=== PATIENT | female | born 1990 | race Caucasian/White ===

== ENCOUNTER → 2017-04-08 16:55 | Outpatient (CLI) | payer OTHER, SELFPAY ==
[2017-04-08 19:25] LABS: Chlamydia Trachomatis by PCR Negative (Negative); Neisserai gonorrhoeae by PCR Negative (Negative); Probe Check PASS; Sample Adequacy Control PASS; Specimen Processing Control PASS
== END ==
PROVIDERS: Visit Provider Obstetrics & Gynecology
DX: Z11.3 Encounter for screening for infections with a predominantly sexual mode of transmission (principal)
CPT/HCPCS: 87491; 87591

== ENCOUNTER → 2017-05-01 16:30 | Outpatient (CLI) | payer OTHER, SELFPAY ==
[2017-05-01 17:36] LABS: Absolute Lymphocyte Count 2.92 X10^3/ul (0.83-4.51); Absolute Neutrophil Count 2.3 X10^3/uL (2.0-7.7); Basophil# 0.06 X10^3/uL; Eosinophil# 0.11 X10^3/uL; Eosinophils% 1.8 % (0-5); Hematocrit 34.9 % (37-47); Hemoglobin 11.9 g/dl (12.0-15.0); Lymphocyte # 2.92 X10^3/ul (4.0); Lymphocyte % 48.7 % (19-41); Mean Corp Hgb Conc 34.1 g/gl (32-36); Mean Corpuscular Hgb 29.3 pg (27.0-32.0); Mean Platelet Vol. 8.8 fl (6.2-12.0); Monocyte# 0.54 X10^3/uL; Neutrophil # 2.34 X10^3/uL (2.7-7.7); Neutrophil % 39.2 % (47-70); Platelet Count 217 K/mm3 (150-450); RBC Distribution Width CV 13.9 % (11.6-14.6); Red Blood Count 4.06 M/mm3 (4.2-5.4)
[2017-05-01 17:45] LABS: POSITIVE COUNT NO; POSITIVE DIFFERENTIAL NO; POSITIVE MORPHOLOGY NO
[2017-05-01 18:03] LABS: Color, Urine Straw (Yellow); Glucose, Dipstick Normal (Normal); Ketone-Dipstick Negative (Negative); Leukocyte Esterase-Dipstick Negative /ul (Negative); Nitrite-Dipstick Negative (Negative); Occult Blood-Urine Negative /ul (Negative); Protein-Dipstick Negative (Negative); Urine Bilirubin Dipstick Negative (Negative); Urine Clarity Clear (Clear); Urine Urobilinogen Normal (Normal)
[2017-05-01 18:18] LABS: Thyroid Stim Hormone (TSH) 1.95 uIU/mL (0.358-3.74)
[2017-05-01 18:34] LABS: Amphetamine Urine VISTA NEGATIVE (<1000 ng/mL); Barbiturate Urine VISTA NEGATIVE (< 200 ng/mL); Benzodiazepine Urine VISTA NEGATIVE (< 200 ng/mL); Cocaine Urine VISTA NEGATIVE (< 300 ng/mL); Ecstacy Urine VISTA NEGATIVE (< 500 ng/mL); Methadone Urine VISTA NEGATIVE (< 300 ng/mL); PCP Urine VISTA NEGATIVE (< 25 ng/mL); THC Urine VISTA NEGATIVE (< 50 ng/mL); Vista UDS pH Range 6
[2017-05-01 18:58] LABS: COTININE Drug Screen Negative (<200 ng/mL)
[2017-05-02 01:10] LABS: Prenatal RPR NONREACTIVE (NONREACTIVE)
[2017-05-02 16:16] LABS: HIV - WCH Non-Reactive (Nonreactive); Rubella IgG 75.1 IU/mL
[2017-05-03 11:02] LABS: HEPATITIS B SURFACE AG Negative (Negative); Hep C Antibodies 0.2 s/co ratio (0.0-0.9)
== END ==
PROVIDERS: Visit Provider Obstetrics & Gynecology
DX: Z34.81 Encounter for supervision of other normal pregnancy, first trimester (principal)
CPT/HCPCS: 36415; 80307; 81002; 84443; 85025; 86703; 86762; 86803; 87340

== ENCOUNTER → 2017-08-26 09:23 | Outpatient (CLI) | payer OTHER, SELFPAY ==
[2017-08-26 11:13] LABS: Hematocrit 33.8 % (37-47); Hemoglobin 11.3 g/dl (12.0-15.0); Mean Corp Hgb Conc 33.4 g/gl (32-36); Mean Corpuscular Hgb 30.8 pg (27.0-32.0); Mean Corpuscular Volume 92.1 fL (81-99); Platelet Count 187 K/mm3 (150-450); RBC Distribution Width CV 14.5 % (11.6-14.6); RBC Distribution Width SD 47.5 fl (35.1-43.9); Red Blood Count 3.67 M/mm3 (4.2-5.4); White Blood Count 7.6 K/mm3 (4.4-11.0)
[2017-08-26 11:14] LABS: Scan Indicated on CBC? Y/N NO
[2017-08-26 11:15] LABS: Glucose Challenge Gest 1H 50g 118 mg/dL (70-140)
== END ==
PROVIDERS: Visit Provider Obstetrics & Gynecology
DX: Z34.82 Encounter for supervision of other normal pregnancy, second trimester (principal)
CPT/HCPCS: 36415; 82950; 85027

== ENCOUNTER → 2017-10-21 16:58 | Outpatient (CLI) | payer OTHER, SELFPAY ==
[2017-10-21 19:09] LABS: Group B Strep DNA By PCR Negative (Negative); Internal Control PASS; Probe Check PASS; Specimen Processing Control PASS
== END ==
PROVIDERS: Visit Provider Obstetrics & Gynecology
DX: Z34.83 Encounter for supervision of other normal pregnancy, third trimester (principal)
CPT/HCPCS: 87081; 87653

== ENCOUNTER 2017-11-26 06:55 | Inpatient (IN) | payer OTHER, SELFPAY ==
[2017-11-26 07:21] VITALS: BMI 28.0
[2017-11-26] MEDS: Oxytocin 30 units/NS 500 ml 30 UNITS/500 ML IV.SOLN IV (07:45)
[2017-11-26 07:51] LABS: Hematocrit 34.4 % (37-47); Hemoglobin 11.4 g/dl (12.0-15.0); Mean Corp Hgb Conc 33.1 g/gl (32-36); Mean Corpuscular Hgb 30.6 pg (27.0-32.0); Mean Corpuscular Volume 92.5 fL (81-99); Mean Platelet Vol. 10.5 fl (6.2-12.0); Platelet Count 188 K/mm3 (150-450); RBC Distribution Width CV 14.3 % (11.6-14.6); RBC Distribution Width SD 48.9 fl (35.1-43.9); Red Blood Count 3.72 M/mm3 (4.2-5.4); Scan Indicated on CBC? Y/N NO; White Blood Count 9.6 K/mm3 (4.4-11.0)
[2017-11-26] MEDS: Lactated Ringers 1,000 ML 50 ML IV (07:52)
--- NOTE | 2017-11-26 08:04 | PCM.PROGNOTE ---
Subjective: Comfortable, not feeling contractions. Objective: Afeb VSS FHR tracing Cat 1. - Physical Exam General: Alert, Oriented x3, Cooperative, No apparent distress Lungs: Clear to auscultation, Normal air movement Cardiovascular: Regular rate, Regular Rhythm Abdomen: Soft, Non Tender, Non-Distended, Gravid, Appropriate for Gestational Age Extremities: No edema Skin: No rashes Neurological: Neuro grossly intact Psych/Mental Status: Normal Affect Comment: CE /-2 Weight: 153 lb 7.068 oz Body Mass Index (BMI) 28.0 Laboratory Tests Past 24 Hrs 11/26/17 11/26/17 07:25 07:25 WBC 9.6 RBC 3.72 L Hgb 11.4 L Hct 34.4 L MCV 92.5 MCH 30.6 MCHC 33.1 RDW 14.3 RDW Differential 48.9 H Plt Count 188 MPV 10.5 Blood Type Pending Antibody Screen Pending Medical Necessity - Tobacco Use Smoking Status: Never smoker Assessment/Plan All Active Problems hemorrhage, delivered (Acute) Admitted for induction of labor at 40 6/7 weeks EGA. AROM performed with clear fluid noted. Reassuring FHR tracing. Pitocin induction started.
[2017-11-26] MEDS: Ondansetron 4 MG/2 ML Vial IV (15:49)
[2017-11-26] MEDS: Oxytocin 30 units/NS 500 ml 30 UNITS/500 ML IV.SOLN 334 UNITS IV (16:25)
--- NOTE | 2017-11-26 16:37 | PCM.OB.VAG ---
Vaginal Delivery Maternal Presentation: Medically Indicated Induction 40w6d ega admitted for induction of labor Method of Induction: Pitocin Amniotic Membrane Rupture Type: Artificial Rupture of Membrane time: 0800 Amniotic Fluid Description: Clear Final NICHOLE: 11/20/17 Final NICHOLE Source: US <20 weeks Gestational age: 40 Weeks and 6 Days Date of Procedure: 11/26/17 Pre-Operative Diagnosis: Labor Post-Operative Diagnosis: Same Surgery/ Procedure Performed: Spontaneous Vaginal Delivery Type of Anesthesia: None Description of Procedure: Progressed to FD then pushed over two contractions to deliver a live male without complication. Medical Voucher Clerk (Dr. James) was on hand at delivery due to meconium. At delivery there was an active cry. The mouth was suctioned and baby dried. Apgars were 9/9. Delayed cord clamping was employed. The placenta delivered spontaneously intact with a centrally located 3VC. The uterus contracted well. The vagina and cervix were intact. Presentation: Vertex Placental Delivery Description: Spontaneous Placenta Disposition: [facility] Percentage of Placenta Abruption: 0 Cord Vessel Description: 3 Vessels Nuchal Cord Compression: Without compression Cord Entanglement: None Estimated Blood Loss: 300cc Infant A gender: Male (1 minute): 9 (5 minute): 9 Episiotomy Description: None Laceration: None Medications given after delivery: IV Pitocin Complications: None
[2017-11-26] MEDS: Oxytocin 30 units/NS 500 ml 30 UNITS/500 ML IV.SOLN 167 UNITS IV (16:55)
[2017-11-26 20:31] VITALS: BP 105/66; PULSE 96; RESP 16; TEMP 36.6
[2017-11-27 00:21] VITALS: BP 109/68; PULSE 73; RESP 16; TEMP 36.7
[2017-11-27 04:32] VITALS: BP 97/52; PULSE 89; RESP 18; TEMP 36.8
[2017-11-27] MEDS: Acetaminophen 500 MG Tablet 1000 MG PO ×2 (04:35→13:34)
[2017-11-27 05:11] LABS: Hematocrit 34.3 % (37-47); Hemoglobin 11.7 g/dl (12.0-15.0); Mean Corp Hgb Conc 34.1 g/gl (32-36); Mean Corpuscular Hgb 31.5 pg (27.0-32.0); Mean Corpuscular Volume 92.2 fL (81-99); Mean Platelet Vol. 10.4 fl (6.2-12.0); Platelet Count 201 K/mm3 (150-450); RBC Distribution Width CV 14.2 % (11.6-14.6); Red Blood Count 3.72 M/mm3 (4.2-5.4); White Blood Count 15.1 K/mm3 (4.4-11.0)
[2017-11-27 05:13] LABS: Scan Indicated on CBC? Y/N NO
[2017-11-27 08:04] VITALS: BP 95/65; PULSE 73; RESP 16; TEMP 37.3
[2017-11-27] MEDS: Ferrous Gluconate 325 MG Tablet PO ×2 (08:07→16:54)
[2017-11-27] MEDS: Prenatal Vits Tablet 1 TABLET PO (11:39)
[2017-11-27 12:05] VITALS: BP 97/65; PULSE 72; RESP 18; TEMP 37.7
--- NOTE | 2017-11-27 12:30 | PCM.PN.OB ---
Subjective: No specific complaints other than cramping. Bleeding light. Breast feeding. Objective: Afeb VSS Hgb stable - Physical Exam General: Alert, Oriented x3, Cooperative, No apparent distress Lungs: Clear to auscultation, Normal air movement Cardiovascular: Regular rate, Regular Rhythm Abdomen: Soft, Non Tender, Non-Distended, - - Fundus nontender Extremities: No edema Skin: No rashes Neurological: Neuro grossly intact Psych/Mental Status: Normal Affect Comment: Lochia light Vital Signs Temp Pulse Resp BP 99.8 F H 72 18 97/65 11/27/17 12:05 11/27/17 12:05 11/27/17 12:05 11/27/17 12:05 Oxygen Delivery Method Room Air Weight: 153 lb 7.068 oz Body Mass Index (BMI) 28.0 Intake and Output for Last 24 Hours 11/25/17 11/26/17 11/27/17 23:59 23:59 23:59 Intake Total 1300 / 1300 Output Total 1999 / 1999 Balance -700 / -700 Laboratory Tests Past 24 Hrs 11/27/17 04:40 WBC 15.1 H RBC 3.72 L Hgb 11.7 L Hct 34.3 L MCV 92.2 MCH 31.5 MCHC 34.1 RDW 14.2 RDW Differential 47.0 H Plt Count 201 MPV 10.4 Medical Necessity - Tobacco Use Smoking Status: Never smoker Assessment/Plan All Active Problems hemorrhage, delivered (Acute) Doing well on PP day#1. Continue routine PP care. Expect discharge home tomorrow.
[2017-11-27 15:19] VITALS: BP 101/62; PULSE 69; RESP 18; TEMP 37.3
--- NOTE | 2017-11-27 18:57 | NURSING ---
Visitors in room. Pt. telling RN that her bleeding is currently minimal.
[2017-11-27 20:19] VITALS: BP 113/75; PULSE 97; RESP 15; TEMP 36.8; O2SAT 99
[2017-11-27] MEDS: Ibuprofen 600 MG Tablet PO (21:43)
[2017-11-28 01:40] VITALS: BP 98/64; PULSE 84; RESP 15; TEMP 36.6; O2SAT 98
[2017-11-28] MEDS: Ibuprofen 600 MG Tablet PO (06:47)
--- NOTE | 2017-11-28 08:20 | PCM.PN.OB ---
Subjective: No specific complaints. Breast feeding. Bleeding light. Objective: AFeb VSS Tm99.8 - Physical Exam General: Alert, Oriented x3, Cooperative, No apparent distress Lungs: Clear to auscultation, Normal air movement Cardiovascular: Regular rate, Regular Rhythm Abdomen: Soft, Non Tender, Non-Distended, - - Fundus firm nontender Extremities: No edema Psych/Mental Status: Normal Affect Comment: Lochia light Vital Signs Temp Pulse Resp BP Pulse Ox 97.9 F 84 15 98/64 98 11/28/17 01:40 11/28/17 01:40 11/28/17 01:40 11/28/17 01:40 11/28/17 01:40 Oxygen Delivery Method Room Air Weight: 153 lb 7.068 oz Body Mass Index (BMI) 28.0 Intake and Output for Last 24 Hours 11/26/17 11/27/17 11/28/17 23:59 23:59 23:59 Intake Total 1300 / 1300 Output Total 1999 / 1999 Balance -700 / -700 Medical Necessity - Tobacco Use Smoking Status: Never smoker Assessment/Plan All Active Problems hemorrhage, delivered (Acute) Doing well on PP day#2. Cleared for discharge home today. Home going instructions and warnings given.
--- NOTE | 2017-11-28 08:22 | PCM.DC.SUM ---
Discharge Date and Diagnosis Date of Admission: 11/26/17 Date of Discharge: 11/28/17 - Primary Discharge Diagnosis s/p Hospital Course and Treatment Operations: None Procedures: - - Pitocin induction of labor. Summary of Care Provided: The patient is a 27 year old F [admitted at 40 6/7 weeks ega for induction of labor. Pitocin induction performed with resultant uncomplicated vaginal delivery of a live male . Post course was unremarkable. She was discharged home on PP day#2.] Discharge Diet: No Restrictions Discharge Activity: Return to Normal Activity, No Restrictions, May Drive, May Shower Return to work on:: 01/28/18 May resume sexual activity in: 4 weeks Call your doctor if your incision/area has: Sudden Increased Bleeding, Foul Smelling Discharge Call your doctor if you observe: Fever of 101 or Higher, Inability to urinate, Inability to have a bowel movement, Using more than one pad per hour, Shortness of breath, Chest pain, Calf discomfort, Uncontrolled pain Cleanse incision/area with: Soap & Water Home Medications: Medications to take at Discharge Ferrous Gluconate 325 mg PO BIDCM 11/26/17 Vits [Prenatabs FA ] 1 tablet PO DAILY 11/26/17 Primary Care Physician: Isis Reynoso MD [Primary Care Provider] - Please Follow Up With: Hiro Oliver MD When: 6 weeks Disposition: Home Minutes spent on discharge:: 15 Patient Condition:: Good Medical Necessity - Tobacco Use Smoking Status: Never smoker Meaningful Use Info Meaningful Use Diagnoses (Choose all that apply): None applicable
[2017-11-28 08:25] VITALS: BP 99/70; PULSE 79; RESP 16; TEMP 37.3; O2SAT 98
--- NOTE | 2017-11-28 08:25 | DCINST_ITS ---
Discharge Diet: No Restrictions Discharge Activity: Return to Normal Activity, May Drive, May Shower Return to work on:: 01/28/18 May shower in (days): 0 May resume sexual activity in: 4 weeks Call your doctor if your incision/area has: Sudden Increased Bleeding, Foul Smelling Discharge Call your doctor if you observe: Fever of 101 or Higher, Inability to urinate, Inability to have a bowel movement, Using more than one pad per hour, Shortness of breath, Chest pain, Calf discomfort, Uncontrolled pain Cleanse incision/area with: Soap & Water Additional Instructions: If you experience any of the following, contact your healthcare provider. * Bleeding that soaks a pad every hour for 2 hours * Fever 100.4 or higher * Unrelieved incision or abdominal pain * Swelling, redness, discharge or bleeding from your incision or episiotomy site * Your incision begins to separate * Problems urinating (including inability to urinate or burning while urinating). * Visual changes * Severe headache * Flu-like symptoms * Pain or redness in one of both of your breasts * Pain, warmth, tenderness or swelling in your legs, especially the calf area * Frequent nausea and vomiting * Symptoms of depression or anxiety If you experience any of the following, call 911 or go to the nearest Emergency Room. * Chest pain * Problems breathing * Seizure activity * Partial or complete paralysis of a body part, slurred speech, weakness or drooping of the face, or a sudden inability to walk or hold your balance Allergies/Adverse Reactions: Allergies carboprost [From Hemabate] Allergy (Verified 03/14/16 06:47) Rash Medications to take at Discharge Ferrous Gluconate 325 mg PO BIDCM 11/26/17 Vits [Prenatabs FA ] 1 tablet PO DAILY 11/26/17 Please Follow Up With: Hiro Oliver MD When: 6 weeks Primary Care Physician: Isis Reynoso MD [Primary Care Provider] - Test Results: Test results from this visit will be discussed in further detail at your follow- up appointment, if applicable. Proposed Discharge Date: 11/28/17
[2017-11-28] MEDS: Ferrous Gluconate 325 MG Tablet PO (09:25)
[2017-11-28] MEDS: Prenatal Vits Tablet 1 TABLET PO (09:26)
[2017-11-28 09:31] VITALS: BP 99/70; PULSE 83; RESP 16; TEMP 36.6
[2017-11-28] MEDS: Senna/Docusate Sodium 1 Tablet PO (09:42)
== END 2017-11-28 11:10 | disposition home or self-care (01) | DRG 807 ==
PROVIDERS: Admitting Provider Obstetrics & Gynecology; Family Provider Internal Medicine; PCP Internal Medicine; Referring Provider Obstetrics & Gynecology; Visit Provider Obstetrics & Gynecology
DX: O48.0 Post-term pregnancy (principal); Z37.0 Single live birth; Z3A.40 40 weeks gestation of pregnancy; O77.0 Labor and delivery complicated by meconium in amniotic fluid; O69.81X0 Labor and delivery complicated by cord around neck, without compression, not applicable or unspecified
CPT/HCPCS: 85027; 86850; 86900; 86920; 99218; J7120; 90686; G0378; J2405

== ENCOUNTER → 2018-09-18 | Outpatient (CLI) | payer OTHER, SELFPAY ==
[2018-09-23 15:20] LABS: HPV Reflexed? NOT INDICATED
== END | disposition home or self-care (01) ==
LOC: LABSPEC 16:30
PROVIDERS: Visit Provider Obstetrics & Gynecology
DX: Z12.4 Encounter for screening for malignant neoplasm of cervix (principal)
CPT/HCPCS: 87624; 88175; G0145

== ENCOUNTER → 2019-03-24 16:15 | Outpatient (CLI) | payer OTHER, SELFPAY ==
[2019-03-24 18:30] LABS: hCG Titer Quant., Serum 322 mIU/mL (1-3)
== END ==
PROVIDERS: Visit Provider Advanced Practice Midwife
DX: Z32.01 Encounter for pregnancy test, result positive (principal)
CPT/HCPCS: 36415; 84702

== ENCOUNTER → 2019-03-26 | Outpatient (CLI) | payer OTHER, SELFPAY ==
[2019-03-26 17:43] LABS: hCG Titer Quant., Serum 391 mIU/mL (1-3)
== END | disposition home or self-care (01) ==
LOC: LAB.FUTURE 16:35
PROVIDERS: Visit Provider Advanced Practice Midwife
DX: Z32.01 Encounter for pregnancy test, result positive (principal)
CPT/HCPCS: 36415; 84702

== ENCOUNTER → 2019-03-29 | Outpatient (CLI) | payer OTHER, SELFPAY ==
[2019-03-29 11:10] LABS: hCG Titer Quant., Serum 456 mIU/mL (1-3)
== END | disposition home or self-care (01) ==
LOC: WOBLAB 09:45
PROVIDERS: Visit Provider Advanced Practice Midwife
DX: Z32.01 Encounter for pregnancy test, result positive (principal)
CPT/HCPCS: 36415; 84702

== ENCOUNTER → 2019-04-05 | Outpatient (CLI) | payer OTHER, SELFPAY ==
[2019-04-05 10:35] LABS: Hematocrit 39.8 % (37-47); Hemoglobin 13.1 g/dL (12.0-15.0); Mean Corp Hgb Conc 32.9 g/dL (32-36); Mean Corpuscular Hgb 29.3 pg (27.0-32.0); Mean Platelet Vol. 9.3 fl (6.2-12.0); Platelet Count 186 K/mm3 (150-450); RBC Distribution Width CV 13.5 % (11.6-14.6); Red Blood Count 4.47 M/mm3 (4.2-5.4); White Blood Count 5.6 K/mm3 (4.4-11.0)
[2019-04-05 10:51] LABS: ALB/GLOB Ratio 1.2 RATIO (0.9-2.4); AST(SGOT) 13 U/L (15-37); Alanine Aminotransfer ALT/SGPT 20 U/L (13-56); Albumin, Serum 4.2 g/dL (3.2-5.0); Alkaline Phosphatase 49 U/L (45-117); Anion Gap 4 (5-15); BUN 9 mg/dL (7-18); BUN/Creat Ratio 12.3 RATIO (10-20); Bilirubin, Direct 0.11 mg/dL (0.00-0.30); Calcium,Total 8.8 mg/dL (8.5-10.1); Chloride 111 mmol/L (98-107); Creatinine, Serum 0.73 mg/dL (0.55-1.02); EST Glomerular Filtration Rate 99 mL/min (>60); Est Glom Filt Rate - Afr Amer 120 mL/min (>60); Globulin 3.4 g/dL (2.2-4.2); Glucose 88 mg/dL (74-106); Potassium 3.8 mmol/L (3.5-5.1); Protein, Total 7.6 g/dL (6.4-8.2); Sodium Level 140 mmol/L (136-145)
[2019-04-05 10:58] LABS: hCG Titer Quant., Serum 484 mIU/mL (1-3)
== END | disposition home or self-care (01) ==
LOC: WOBLAB 10:24
PROVIDERS: Visit Provider Obstetrics & Gynecology
DX: O02.81 Inappropriate change in quantitative human chorionic gonadotropin (hCG) in early pregnancy (principal); Z3A.00 Weeks of gestation of pregnancy not specified
CPT/HCPCS: 36415; 80053; 82248; 84702; 85027; 86850; 86900; 86901

== ENCOUNTER → 2019-04-09 | Outpatient (CLI) | payer OTHER, SELFPAY ==
[2019-04-09 17:29] LABS: hCG Titer Quant., Serum 274 mIU/mL (1-3)
== END | disposition home or self-care (01) ==
LOC: LABSPEC 16:05
PROVIDERS: Visit Provider Obstetrics & Gynecology
DX: O02.81 Inappropriate change in quantitative human chorionic gonadotropin (hCG) in early pregnancy (principal); Z3A.00 Weeks of gestation of pregnancy not specified
CPT/HCPCS: 36415; 84702

== ENCOUNTER → 2019-04-16 | Outpatient (CLI) | payer OTHER, SELFPAY ==
[2019-04-16 11:25] LABS: hCG Titer Quant., Serum 45 mIU/mL (1-3)
== END | disposition home or self-care (01) ==
LOC: WOBLAB 10:30
PROVIDERS: Visit Provider Obstetrics & Gynecology
DX: O02.81 Inappropriate change in quantitative human chorionic gonadotropin (hCG) in early pregnancy (principal); Z3A.00 Weeks of gestation of pregnancy not specified
CPT/HCPCS: 36415; 84702

== ENCOUNTER → 2019-04-26 | Outpatient (CLI) | payer OTHER, SELFPAY ==
[2019-04-26 11:22] LABS: hCG Titer Quant., Serum 12 mIU/mL (1-3)
== END | disposition home or self-care (01) ==
LOC: WOBLAB 09:44
PROVIDERS: Visit Provider Obstetrics & Gynecology
DX: O02.81 Inappropriate change in quantitative human chorionic gonadotropin (hCG) in early pregnancy (principal); Z3A.00 Weeks of gestation of pregnancy not specified
CPT/HCPCS: 36415; 84702

== ENCOUNTER → 2019-05-03 | Outpatient (CLI) | payer OTHER, SELFPAY ==
[2019-05-03 12:11] LABS: hCG Titer Quant., Serum 11 mIU/mL (1-3)
== END | disposition home or self-care (01) ==
LOC: WOBLAB 11:06
PROVIDERS: Visit Provider Obstetrics & Gynecology
DX: O02.81 Inappropriate change in quantitative human chorionic gonadotropin (hCG) in early pregnancy (principal); Z3A.00 Weeks of gestation of pregnancy not specified
CPT/HCPCS: 36415; 84702

== ENCOUNTER → 2019-12-23 | Outpatient (CLI) | payer OTHER, SELFPAY ==
[2019-12-25 03:07] LABS: Chlamydia By Nucleic Acid AMP Negative (Negative)
[2019-12-25 14:31] LABS: Gonococcus By Nucleic Acid AMP Negative (Negative)
== END | disposition home or self-care (01) ==
LOC: LABSPEC 10:37
PROVIDERS: Visit Provider Obstetrics & Gynecology
DX: Z11.3 Encounter for screening for infections with a predominantly sexual mode of transmission (principal)
CPT/HCPCS: 87491; 87591

== ENCOUNTER → 2019-12-30 10:29 | Outpatient (CLI) | payer OTHER, SELFPAY ==
[2019-12-30 13:45] LABS: Absolute Lymphocyte Count 1.38 X10^3/uL (0.83-4.51); Basophil# 0.01 X10^3/uL; Basophil% 0.2 % (0-1); Eosinophil# 0.05 X10^3/uL; Hematocrit 35.5 % (37-47); Hemoglobin 11.4 g/dL (12.0-15.0); Lymphocyte # 1.38 X10^3/ul (4.0); Lymphocyte % 28.3 % (19-41); Mean Corp Hgb Conc 32.1 g/dL (32-36); Mean Corpuscular Hgb 28.7 pg (27.0-32.0); Mean Corpuscular Volume 89.4 fL (81-99); Mean Platelet Vol. 9.8 fl (6.2-12.0); Monocyte% 8.2 % (0-10); NRBC Flagged by Analyzer 0 % (0-5); Neutrophil # 3.02 X10^3/uL (2.7-7.7); Neutrophil % 62.1 % (47-70); Platelet Count 201 K/mm3 (150-450); RBC Distribution Width CV 13.2 % (11.6-14.6); RBC Distribution Width SD 43.8 fl (35.1-43.9); Red Blood Count 3.97 M/mm3 (4.2-5.4); White Blood Count 4.9 K/mm3 (4.4-11.0)
[2019-12-30 13:49] LABS: Color, Urine Straw (Yellow); Glucose, Dipstick Normal (Normal); Ketone-Dipstick 15 mg/dl (Negative); Leukocyte Esterase-Dipstick 500 /ul (Negative); Nitrite-Dipstick Negative (Negative); Occult Blood-Urine Negative /ul (Negative); Protein-Dipstick Negative (Negative); Urine Bilirubin Dipstick Negative (Negative); Urine Clarity Sl. Cloudy (Clear); Urine Urobilinogen Normal (Normal)
[2019-12-30 14:01] LABS: Amphetamine Urine VISTA NEGATIVE (<1000 ng/mL); Barbiturate Urine VISTA NEGATIVE (< 200 ng/mL); Benzodiazepine Urine VISTA NEGATIVE (< 200 ng/mL); Cocaine Urine VISTA NEGATIVE (< 300 ng/mL); Ecstacy Urine VISTA NEGATIVE (< 500 ng/mL); Methadone Urine VISTA NEGATIVE (< 300 ng/mL); PCP Urine VISTA NEGATIVE (< 25 ng/mL); THC Urine VISTA NEGATIVE (< 50 ng/mL); Vista UDS pH Range 6
[2019-12-30 14:06] LABS: Thyroid Stim Hormone (TSH) 2.68 uIU/mL (0.358-3.74)
[2019-12-30 14:40] LABS: HIV - WCH Non-Reactive (Nonreactive); Hepatitis B Surface Antigen Non-Reactive (Nonreactive); Hepatitis C Antibody Non-Reactive (Nonreactive); Rubella IgG Reactive (Nonreactive)
[2020-01-06 01:20] LABS: Prenatal RPR NONREACTIVE (NONREACTIVE)
== END ==
PROVIDERS: Visit Provider Student in an Organized Health Care Education/Training Program
DX: Z34.81 Encounter for supervision of other normal pregnancy, first trimester (principal)
CPT/HCPCS: 36415; 80307; 81002; 84443; 85025; 86703; 86762; 86803; 87086; 87088; 87340

== ENCOUNTER → 2020-05-11 09:49 | Outpatient (CLI) | payer OTHER, SELFPAY ==
[2020-05-11 13:12] LABS: Hematocrit 34.3 % (37-47); Mean Corp Hgb Conc 32.1 g/dL (32-36); Mean Corpuscular Hgb 30.3 pg (27.0-32.0); Mean Corpuscular Volume 94.5 fL (81-99); Mean Platelet Vol. 10.2 fl (6.2-12.0); Platelet Count 200 K/mm3 (150-450); RBC Distribution Width CV 14.2 % (11.6-14.6); RBC Distribution Width SD 48.8 fl (35.1-43.9); Red Blood Count 3.63 M/mm3 (4.2-5.4); White Blood Count 8.8 K/mm3 (4.4-11.0)
[2020-05-11 13:20] LABS: Glucose Challenge Gest 1H 50g 89 mg/dL (70-140)
== END ==
PROVIDERS: Visit Provider Obstetrics & Gynecology
DX: Z34.81 Encounter for supervision of other normal pregnancy, first trimester (principal)
CPT/HCPCS: 36415; 82950; 85027

== ENCOUNTER → 2020-07-13 11:53 | Outpatient (CLI) | payer OTHER, SELFPAY | PROVIDERS: Visit Provider Obstetrics & Gynecology | DX: Z36.85 Encounter for antenatal screening for Streptococcus B (principal) | CPT/HCPCS: 87081 ==

== ENCOUNTER 2020-08-11 13:25 | Inpatient (IN) | payer OTHER, SELFPAY ==
[2020-08-11] VITALS (10 sets, daily range): BP systolic 103–123; BP diastolic 56–72; PULSE 80–111; TEMP 36.6–37.5; O2SAT 96–99; BMI 29.2
[2020-08-11] MEDS: Lactated Ringers 1,000 ML 50 ML IV (14:13)
[2020-08-11] MEDS: Oxytocin 30 units/NS 500 ml 30 UNITS/500 ML IV.SOLN IV (14:53)
[2020-08-11 14:57] LABS: Absolute Lymphocyte Count 2.34 X10^3/uL (0.83-4.51); Absolute Neutrophil Count 8.3 X10^3/uL (2.0-7.7); Basophil# 0.06 X10^3/uL; Basophil% 0.5 % (0-1); Eosinophil# 0.14 X10^3/uL; Eosinophils% 1.1 % (0-5); Hematocrit 36.6 % (37-47); Hemoglobin 12.1 g/dL (12.0-15.0); Lymphocyte # 2.34 X10^3/ul (0.83-4.51); Lymphocyte % 19.2 % (19-41); Mean Corp Hgb Conc 33.1 g/dL (32-36); Mean Corpuscular Hgb 30.7 pg (27.0-32.0); Mean Corpuscular Volume 92.9 fL (81-99); Mean Platelet Vol. 10.7 fl (6.2-12.0); Monocyte# 1.07 X10^3/uL; Monocyte% 8.8 % (0-10); NRBC Flagged by Analyzer 0 % (0-5); Neutrophil # 8.27 X10^3/uL (2.7-7.7); Neutrophil % 67.7 % (47-70); Platelet Count 273 K/mm3 (150-450); RBC Distribution Width CV 14.4 % (11.6-14.6); RBC Distribution Width SD 48.9 fl (35.1-43.9); Red Blood Count 3.94 M/mm3 (4.2-5.4); White Blood Count 12.2 K/mm3 (4.4-11.0)
--- NOTE | 2020-08-11 17:53 | HP.PCM.OB_ITS ---
HPI - General General Date of Admission: 08/11/20 HPI Narrative ARRON RAMOS, is a 30 F @ 40 3/7 weeks gestation present for induction of labor. Maternal Data Information NICHOLE Calculator Estimated Delivery Date Method Current WG Current Estimate 08/08/20 LMP (Certain) 40w 3d PFSH PFSH Medical History (Updated 08/11/20 @ 18:[address] Gela Helms MD) hemorrhage Transfusion history Home Medications Prenatabs FA 1 tab PO DAILY 11/26/17 [History Last Taken 08/10/20 21:00] Allergy/AdvReac Type Severity Reaction Status Date / Time carboprost [From Hemabate] Allergy Rash Verified 08/11/20 14:10 Family History (Updated 08/11/20 @ 17:[address] Gela Helms MD) Mother Lung cancer Surgical History (Updated 08/11/20 @ 17:[address] Gela Helms MD) No history of previous surgery Social History Smoking Status: Never smoker History 5 Elective abortions 0 Hx Para 3 Spontaneous abortions 1 Hx # Term Pregnancies 3 Ectopic pregnancies 0 Hx # Pregnancies 0 Multiple births 0 # of living children 1 Past Pregnancies Del. Date Name GA/Weeks Outcome Route Bth Weight Gen Labor Lgth Anesthesia Del Locatn Provider FOB 01/11/14 Shin 41 live - full term 7lb 13oz Male 9 ep idural [facility]hen 03/13/16 Loree 40 live - full term 7lb2oz Female 12 ep idural [facility] Zhen 11/26/17 Bi 40 live - full term 8lb 7 oz Male 8 n one [facility] 03/27/18 6 spontaneous Delivery Date: 01/11/14 [facility] Delivery Date: 03/13/16 hemorrhage; 2u prbc [facility] Delivery Date: 11/26/17 I[facility] Delivery Date: 03/27/18 No notes to display NST FHR Rate Baby A Baseline: 140 Variability:: Moderate Accelerations:: 15 x 15 Decelerations:: None NST Reactive:: Yes FHR Category:: Category I Uterine Activity:: 3/10 Vital Signs Vital Signs Vital Signs: 08/11/20 14:34 08/11/20 15:29 08/11/20 17:01 Temperature 99.5 F H 99.0 F Temperature Source Temporal Temporal Temporal Pulse Rate 111 H 94 85 Blood Pressure 114/64 109/68 103/60 BP Systolic 114 109 103 BP Diastolic 64 68 60 Pulse Ox 96 98 Weight Weight: 72.5 kg Body Mass Index (BMI) 29.2 Physical Exam Const alert, oriented x3 and no apparent distress HEENT normocephalic Resp normal respiratory effort, normal air movement and clear to auscultation bilaterally Cardio regular rate and regular rhythm GI normal to inspection, nondistended, normoactive bowel sounds, soft to palpation, non-tender and non-distended Inspection: gravid Extremity no calf tenderness and no pedal edema Labs Labs Labs: Blood Type A POSITIVE Antibody Screen NEGATIVE Hct 36.6 % (37-47) L Hgb 12.1 g/dL (12.0-15.0) Rubella IgG Antibody Reactive (Nonreactive) Hep Bs Antigen Non-Reactive (Nonreactive) Neisseria gonorrhoeae DNA (EFRA) Negative (Negative) HIV 1&2 Antibody Non-Reactive (Nonreactive) C.trachomatis DNA (PCR) Negative (Negative) Glucose 1 Hr 50 gm 89 mg/dL (70-140) Group B Strep DNA Negative (Negative) Rhogam given: No Assessment & Plan (1) 40 weeks gestation of : PLAN: Pitocin started Amniotomy performed with clear fluid Cat I FHR
[2020-08-11] MEDS: Mag Hydrox/Al Hydrox/Simeth 30 ML UDC PO (22:37)
[2020-08-12] VITALS (19 sets, daily range): BP systolic 92–136; BP diastolic 53–70; PULSE 86–129; RESP 16–18; TEMP 36.2–37.3; O2SAT 91–99
[2020-08-12] MEDS: Lactated Ringers 1,000 ML 200 ML IV (01:06)
[2020-08-12] MEDS: Lactated Ringers 500 ML 999 ML IV (01:44)
[2020-08-12] MEDS: Oxytocin 30 units/NS 500 ml 30 UNITS/500 ML IV.SOLN 334 UNITS IV (03:22)
[2020-08-12] MEDS: Methylergonovine 0.2 MG/ML Ampul IM (03:27)
[2020-08-12] MEDS: miSOPROStol 200 MCG Tablet 800 MCG BUCCAL (03:30)
[2020-08-12] MEDS: Morphine 4 MG/ML Syringe IV (03:41)
--- NOTE | 2020-08-12 04:02 | EX.PCM.OBRPT ---
Assessment & Plan (1) 40 weeks gestation of : Maternal Data Information NICHOLE Calculator Estimated Delivery Date Method Current WG Current Estimate 08/08/20 LMP (Certain) 40w 4d Vaginal Delivery Maternal Presentation Maternal Presentation: Elective Induction Type of Induction: Pitocin and Amniotomy Operative Information Date of Procedure: 08/12/20 Pre-Operative Diagnosis: 40-4/7 weeks gestation Post-Operative Diagnosis: 40-4/7 weeks gestation Cervical laceration Surgery / Procedure Performed: Spontaneous Vaginal Delivery Type of Anesthesia: None Estimated Blood Loss: 650 ml Findings Description of Procedure: Called to patient room for delivery. On arrival patient reported 8 cm and +1 station with category 1 heart rate tracing. She continued breathing over several contractions until there was a bulging of the perineum and she was fully dilated +3 station. She pushed with excellent maternal effort to deliver a female infant in direct OA over an intact perineum. A double nuchal cord was reduced at the perineum. The infant was placed on the maternal abdomen further attended by nursery personnel. The cord was doubly clamped and cut at approximately 4 minutes of life. There is an increase in bleeding without hemorrhage. Methergine and misoprostol were given in addition to standard Pitocin. The uterine fundus was firm and intrauterine exam performed with retrieval of few small clots. The cervix was inspected and appeared to have a laceration at approximately 5:00. The cervical laceration was repaired using 3-0 Vicryl Rapide with improved hemostasis. The uterine fundus remained firm and vaginal exam confirmed patency of the cervix. Sponge counts were correct x2. Presentation: Vertex Amniotic Membrane Rupture Type: Artificial Amniotic Fluid Description: Clear Placental Delivery Description: Spontaneous Placenta Disposition: [facility] Cord Vessel Description: 3 Vessels Cord Entanglement: Around neck x 2, loose Nuchal Cord Compression: Without compression A Gender: Female (1 minute): 8 (5 minute): 9 Delayed Cord Clamping: Yes Post Vaginal Delivery Medications Given After Delivery: IV Pitocin and IM Methergin Episiotomy Description: None Laceration: Cervical Extension/lac Complication Complications: -
[2020-08-12] MEDS: 0.9% Saline Lock 10 ML Syringe IV (05:52)
[2020-08-12] MEDS: Prenatal Vits Tablet 1 TABLET PO (11:57)
[2020-08-12] MEDS: Ibuprofen 600 MG Tablet PO ×2 (13:24→20:21)
[2020-08-12] MEDS: Senna/Docusate Sodium 1 Tablet PO (16:40)
[2020-08-12] MEDS: Acetaminophen 500 MG Tablet 1000 MG PO (16:40)
[2020-08-13 00:24] VITALS: BP 102/61; PULSE 76; RESP 18; TEMP 37.2; O2SAT 99
[2020-08-13] MEDS: Ibuprofen 600 MG Tablet PO (03:22)
[2020-08-13 06:13] LABS: Hematocrit 32.1 % (37-47); Hemoglobin 10.4 g/dL (12.0-15.0); Mean Corp Hgb Conc 32.4 g/dL (32-36); Mean Corpuscular Hgb 30.6 pg (27.0-32.0); Mean Corpuscular Volume 94.4 fL (81-99); Mean Platelet Vol. 10.2 fl (6.2-12.0); Platelet Count 238 K/mm3 (150-450); RBC Distribution Width CV 14.7 % (11.6-14.6); RBC Distribution Width SD 50.5 fl (35.1-43.9); White Blood Count 13.6 K/mm3 (4.4-11.0)
[2020-08-13 08:10] VITALS: BP 104/67; PULSE 88; RESP 18; TEMP 36.8
--- NOTE | 2020-08-13 09:07 | PCM.DC ---
Discharge Instructions Diet Discharge Diet: No restrictions Activity May resume sexual activity in: 4 weeks Dressing / Incision Call your doctor if you observe: Fever of 101 or Higher, Using more than 1 pad per hour, Shortness of breath, Chest pain, Calf discomfort and Uncontrolled pain Follow Up Care Please Follow Up With: Ramone Lyman MD When: 3 weeks for telehealth 6 weeks for visit Test Results: Test results from this visit will be discussed in further detail at your follow-up appointment, if applicable. Discharge Plan Admission Admit Date/Time: 08/11/20 13:25 Primary Reason for Your Visit: Vaginal delivery Attending Provider: Gela Stallings Primary Care Provider: Isis Reynoso Instructions Patient Instructions: After a Vaginal Discharge Orders/Prescriptions Prescriptions: New ibuprofen 600 mg Tablet 600 mg PO Q8H PRN PRN (Reason: Pain Score 1-3) Qty: 30 RF: 0 Continued Prenatabs FA 1 TABLET tablet 1 tab PO DAILY RF: 0 Referrals / Follow Up: Isis Reynoso MD [Primary Care Provider] - Disposition Disposition (needs filled in before D/C Order can be placed): Home, self care
--- NOTE | 2020-08-13 09:28 | PCM.DC ---
Discharge Instructions Diet Discharge Diet: No restrictions Activity Discharge Activity: Return to Normal Activity May resume sexual activity in: 4-6 weeks Lifting Restrictions: 20-25 lb Dressing / Incision Call your doctor if you observe: Fever of 101 or Higher, Using more than 1 pad per hour, Shortness of breath, Chest pain, Calf discomfort and Uncontrolled pain Follow Up Care Please Follow Up With: Ramone Lyman MD When: 3 weeks for telehealth follow up 6 weeks for visit Test Results: Test results from this visit will be discussed in further detail at your follow-up appointment, if applicable. Discharge Plan Admission Admit Date/Time: 08/11/20 13:25 Primary Reason for Your Visit: Vaginal delivery Attending Provider: Gela Stallings Primary Care Provider: Isis Reynoso Instructions Patient Instructions: After a Vaginal Discharge Orders/Prescriptions Prescriptions: New ibuprofen 600 mg Tablet 600 mg PO Q8H PRN PRN (Reason: Pain Score 1-3) Qty: 30 RF: 0 ferrous sulfate 325 mg (65 mg iron) tablet 325 mg PO BID Qty: 60 RF: 0 Continued Prenatabs FA 1 TABLET tablet 1 tab PO DAILY RF: 0 Referrals / Follow Up: Isis Reynoso MD [Primary Care Provider] - Disposition Disposition (needs filled in before D/C Order can be placed): Home, self care
--- NOTE | 2020-08-13 09:32 | PCM.PN.OB ---
Subjective Subjective No issues overnight. Denies heavy lochia or significant pain. She is out of bed. going well. Desires discharge home today. Objective Data Objective Data Vital Signs: Vital Signs Temp Pulse Resp BP Pulse Ox 98.3 F 88 18 104/67 99 08/13/20 08:10 08/13/20 08:10 08/13/20 08:10 08/13/20 08:10 08/13/20 00:24 Oxygen Delivery Method Room Air Weight: 72.5 kg Body Mass Index (BMI) 29.2 Intake & Output: Intake and Output for Last 24 Hours 08/11/20 08/12/20 08/13/20 23:59 23:59 23:59 Intake Total 1518.84 / 1518.84 1883.67 / 1883.67 Output Total 1900 / 1900 550 / 550 Balance -381.16 / -381.16 1333.67 / 1333.67 Lab / Micro Data Result Diagrams: 08/13/20 06:05 Labs: Laboratory Results - last 24 hr 08/13/20 06:05 WBC 13.6 H RBC 3.40 L Hgb 10.4 L Hct 32.1 L MCV 94.4 MCH 30.6 MCHC 32.4 RDW Std Deviation 50.5 H RDW Coeff of Chaz 14.7 H Plt Count 238 MPV 10.2 Micro: Microbiology 08/11/20 14:30 Mucosa - Nose SARS-CoV-2 Antigen (Rapid) - Final Physical Exam Const alert, oriented x3 and no apparent distress Resp normal respiratory effort and normal air movement Cardio regular rate, regular rhythm, S1 normal heart sound and S2 normal heart sound Uterus Palpation: uterus fundus firm and other OB fundus nontender Extremity no calf tenderness Neuro oriented x3 Assessment & Plan (1) (spontaneous vaginal delivery): PLAN: Rh positive Anemia - Fe supplementation d/c home today
== END 2020-08-13 09:38 | disposition home or self-care (01) | DRG 768 ==
PROVIDERS: Admitting Provider Obstetrics & Gynecology; PCP Internal Medicine; Visit Provider Obstetrics & Gynecology
DX: O69.81X0 Labor and delivery complicated by cord around neck, without compression, not applicable or unspecified (principal); Z37.0 Single live birth; O71.3 Obstetric laceration of cervix; Z3A.40 40 weeks gestation of pregnancy
CPT/HCPCS: 59025; 59050; 85025; 85027; 86850; 86900; 86901; 87426; 99218; J7120; A4216; G0378

== ENCOUNTER → 2020-09-21 | Outpatient (CLI) | payer OTHER, SELFPAY ==
[2020-08-11 14:10] VITALS: BMI 29.2
[2020-09-26 13:44] LABS: HPV Reflexed? NOT INDICATED
== END | disposition home or self-care (01) ==
LOC: LABSPEC 13:29
PROVIDERS: PCP Internal Medicine; Visit Provider Obstetrics & Gynecology
DX: Z12.4 Encounter for screening for malignant neoplasm of cervix (principal)
CPT/HCPCS: 88175; G0145

== ENCOUNTER → 2021-07-16 | Outpatient (CLI) | payer OTHER, SELFPAY ==
--- NOTE | 2021-07-16 12:49 | BI_ITS ---
MAMMOGRAPHY - BILATERAL SCREENING REASON FOR EXAM: Female, 31 years old. Routine annual screening examination. PERTINENT HISTORY: Mother from cancer at age 32 which may have been lung but unknown primary. TECHNIQUE: Digital bilateral breast linda (3D mammographic acquisition) in the CC and MLO projections. 2-D mediolateral oblique (MLO) and craniocaudad (CC) views of both breasts were obtained. CAD: Full Field Digital Mammography with Computer Added Detection was performed. COMPARISON: None. FINDINGS: Breast Composition: The breasts are extremely dense, which lowers the sensitivity of mammography. There are no dominant masses or suspicious calcifications. No other significant abnormalities are identified. BI/SCRN MAMM (CAD)W/LINDA BILAT IMPRESSION: Negative screening mammogram. Yearly followup mammogram recommended. (A) ASSESSMENT CATEGORY: BIRADS Category 1: Negative. A letter regarding these results will be sent to the patient by the facility within 30 days. Approximately 10% of breast cancers are not detected by mammography. A normal mammogram should not delay biopsy of a clinically suspicious abnormality. [id number] Electronically Signed: Juan C Robledo, at 14:07 EDT ,
== END | disposition home or self-care (01) ==
PROVIDERS: PCP Internal Medicine; Visit Provider Obstetrics & Gynecology
DX: Z12.31 Encounter for screening mammogram for malignant neoplasm of breast (principal)
CPT/HCPCS: 77063; 77067

== ENCOUNTER → 2021-07-26 | Outpatient (CLI) | payer OTHER, SELFPAY ==
--- NOTE | 2021-07-26 09:57 | US_ITS ---
STUDY: ULTRASOUND BREAST - RIGHT REASON FOR EXAM: Female, 31 years old. Palpable lump in the right retroareolar region. TECHNIQUE: Axial and longitudinal images of the RIGHT breast were performed with a high resolution ultrasound transducer. # OF IMAGES: 23 COMPARISON: Comparison is made with prior mammogram dated 07/16/2021. FINDINGS: RIGHT Breast: The retroareolar region of the breast was examined with ultrasound. There is dense fibroglandular tissue. No sonographic abnormality is seen. US/Breast Limited Unilateral IMPRESSION: No sonographic abnormality is seen. ASSESSMENT CATEGORY: BIRADS Category 1: Negative. A letter regarding these results will be sent to the patient by the facility within 30 days. Electronically Signed: Sloan Pickens MD at 11:12 EDT ,
== END | disposition home or self-care (01) ==
PROVIDERS: PCP Internal Medicine; Visit Provider Obstetrics & Gynecology
DX: N63.41 Unspecified lump in right breast, subareolar (principal)
CPT/HCPCS: 76642

== ENCOUNTER 2024-12-02 08:36 | Emergency (ER) | payer BC, SELFPAY ==
[2024-12-02 08:37] VITALS: BP 123/81; PULSE 98; RESP 18; TEMP 36.8; O2SAT 100; BMI 21.0
--- NOTE | 2024-12-02 08:58 | EDS_ITS ---
HPI History of Present Illness Chief Complaint: Chest Pain Narrative Narrative: Patient is a 34-year-old female with no significant PMHx presenting with acute onset pleuritic chest pain and a 2-week history of urticaria. - Reports sudden onset of stabbing pain under the right breast at 0330 this morning, waking her from sleep. - Pain is pleuritic, occurring with every breath, and has improved slightly but remains present. - Denies previous episodes of similar pain, history of blood clots, or recent trauma to the chest or rib cage. - Denies dyspnea, but reports taking shallow breaths due to pain; pain is also exacerbated by movement. - Denies recent travel, surgery, or immobilization. - No family history of blood clots or clotting disorders; mother had lung cancer at age 32. - No history of pneumothorax or chest/lung surgeries. - Denies recent illness, emesis, diarrhea, fever, or cough. - Denies calf swelling or hemoptysis. - Reports urticaria for 2 weeks without known triggers; denies new soaps, colognes, detergents, medications, or foods. - Currently taking control, which she has been on for years; denies other medications. - Denies recent ; youngest child is 4 years old. Prior Similar Symptoms: No Recent Illness/Hospitalization: No CVD Risk Factors: Negative for Hypertension, Diabetes, Hypercholesterolemia, Family History 1' </=55 or Smoking PE Risk Factors: Negative for Recent Travel/Surgery, Recent Immobilization, Prior DVT or PE, Cancer or OCP + Smoking + >/=35 TAD Risk Factors: Negative for Marfan's Syndrome [facility] Medical History (spontaneous vaginal delivery) Transfusion history hemorrhage Home Medications ?Medication ?Instructions ?Recorded ?Last Taken ?Type norgestimate 0.25 mg-ethinyl 1 tab PO DAILY 04/26/22 U nknown History estradiol 0.035 mg tablet (Sprintec (28)) prednisone 20 mg tablet 40 mg (2 x 20 mg) PO DAILY # 20 tabs 12/02/24 Unknown Rx Allergy/AdvReac Type Severity Reaction Status Date / Time carboprost (From Hemabate) Allergy Rash Verified 12/02/24 08:36 Family History Mother Lung cancer Other Kidney cancer, primary, with metastasis from kidney to other site Surgical History No history of previous surgery Social History Smoking Status: Never smoker ROS ROS ED ROS Narrative Denies recent illness. Pleuritic chest pain since 3:30 this morning. Also recent hives the last several weeks. Constitutional Constitutional ED: Denies chills ENT ENT ED: Denies ear pain Cardiovascular Cardiovascular: Reports as per HPI and chest pain; Denies palpitations or racing heartbeat Respiratory/Chest Respiratory/Chest: Denies dyspnea or dyspnea on exertion Gastrointestinal Gastrointestinal: Denies abdominal pain Genitourinary Genitourinary ED: Denies dysuria Musculoskeletal Musculoskeletal: Denies arthralgias Integumentary Denies abscess or Abrasions Neurologic Neurologic: Denies headache(s) Psychiatric Psychiatric: Denies anxiety Endocrine Endocrinology: Denies cold intolerance Hematologic/Lymphatic Hematologic/Lymphatic: Denies easy bleeding, easy bruising or lymphadenopathy Allergic/Immunologic Allergic/Immunologic ED: Denies mouth swelling, tongue swelling or urticaria EXAM Physical Exam Narrative Exam Narrative: Well-appearing 34-year-old female. Vital signs stable afebrile. Pulse ox 100% on room air no signs hypoxia. H EENT exam pupils round react to light. Moist mucous membranes. Neck nontender no JVD. Lungs clear to auscultation bilaterally. Heart regular rhythm rate about 95 no murmur. Chest wall and ribs there is reproducible pain left lateral breast. There is no ecchymosis or bruising. There is no rash or redness. There is no bony deformity. Currently on palpation there is no reproducible pain but when she rotates she has some discomfort along her trunk in that same area. No signs of trauma. No crepitance. No axillary lymphadenopathy. No pain on palpation of the left breast or mass. Abdomen soft nontender. Back nontender. Moving all 4 extremities. 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 Equal symmetrical radial pulses. Dorsi plantarflexion intact. Calves nontender without edema or cords. Neurologically she is awake and alert. Const Vital Signs: 12/02/24 08:37 12/02/24 09:09 Temperature 98.2 F Temperature Source Oral Pulse Rate 98 Respiratory Rate 18 Blood Pressure 123/81 H Blood Pressure Mean 95 Pulse Ox 100 Oxygen Delivery Method Room Air Room Air MDM MDM MDM Narrative Medical decision making narrative: 34-year-old atypical left-sided chest pain that is worse with deep breathing and movement. No history of DVT or PE or risk factors. She does have a small child at home that she lifts occasionally may have caused injury to her chest wall. She will undergo cardiac workup with a D-dimer. My suspicion is being cardiac is extremely low as it is for a PE. The hives are most likely an allergic reaction to what specifically I do not know the only medication she is on is control and she has had no recent changes to her soaps colognes or detergents. Currently she does not have any significant highs on exam. Repeat exam patient is doing well at 10:09 AM. I gone over her test results with her. Awaiting the D-dimer. D-dimer returned and was normal. This appears to be musculoskeletal rib cage pain. Hot shower, warm bath. Motrin and Tylenol. Ice to the area. This should progressively improved. I suspect she strained her rib cage from lifting her child. History & Record Review Discussion w/independent historian: Patient and Family Additional record(s) reviewed:: Prior inpatient record, Prior outpatient record, Prior ED visit and Prior labs Lab Data Attestation: I reviewed the patient's lab results. Lab results narrative: Chest x-ray normal. EKG normal. CBC shows a white count 5.6. H&H 11.7 and 34 her baseline chronic very mild anemia. Platelets 340. Electrolytes show a gap of 10. BUN and creatinine of 13 and 0.6. Glucose 98. Initial troponin less than 6. D-dimer less than 0.27 Labs: Laboratory Results - last 24 hr 12/02/24 12/02/24 09:12 09:40 WBC 5.6 RBC 3.97 L Hgb 11.7 L Hct 35.3 L MCV 88.9 MCH 29.5 MCHC 33.1 RDW Std Deviation 44.7 H RDW Coeff of Chaz 13.7 Plt Count 340 MPV 11.4 Immature Gran % (Auto) 0.400 Neut % (Auto) 78.9 H Lymph % (Auto) 16.3 L [place] % (Auto) 3.6 Eos % (Auto) 0.4 Baso % (Auto) 0.4 Absolute Neuts (auto) 4.4 Absolute Lymphs (auto) 0.91 Nucleated RBC % 0 D-Dimer Quant (PE/DVT) Cancelled < 0.27 L Sodium 136 Potassium 3.8 Chloride 104 Carbon Dioxide 22.1 Anion Gap 10 BUN 13 Creatinine 0.68 L Estim Creat Clear Calc 91.33 Est GFR (MDRD) Non-Af 116 BUN/Creatinine Ratio 19.5 Glucose 98 Calcium 9.0 Troponin T High Sens < 6 Radiography Chest X-Ray - ED: 2 View and Read by ED Physician Diagnostic Testing: Clinical Impression(s) from Imaging Studies Chest X-Ray 12/02/24 09:28 IMPRESSION: No acute pulmonary process Reading Location: [place] [id number] Rhythm Strip Rhythm Strip: Sinus Rhythm Rate: 94 Ectopy: None EKG Initial EKG: Attestation: I personally reviewed and interpreted this EKG as follows: Interpretation: Sinus Rhythm and No Acute Injury Pattern Comments: Normal sinus rhythm rate of 94 no acute signs of PR or ischemia. No dysrhythmia. No [id number]. Discharge Plan Triage Chief Complaint: Chest Pain ED Provider: Donavon Rojas Dx/Rx/DC Orders Clinical Impression: Chest pain, Strain of chest wall, Hives Instructions: ED Hives (Adult), ED Chest Wall Strain Prescriptions: New prednisone 20 mg tablet 40 mg PO DAILY Qty: 20 0RF Rx Instructions: Take as needed when you develop hives. Usually it will take them away in a few days. No Action norgestimate-ethinyl estradiol [Sprintec (28)] 0.25-35 mg-mcg tablet 1 tab PO DAILY Patient Comments: TAKE 1 TABLET BY MOUTH ONCE DAILY Primary Care Provider: Care Physician,No Primary Referrals: Isis Reynoso MD [Med Staff - Building Mechanic, Internal Medicine] - 1 Week if not improving Activity Restrictions/Additional Instructions: Prednisone as needed when you get the hives. Usually 40 mg a day for 3 days will typically take them away. You can also use Benadryl for the hives or itching. Motrin and Tylenol for pain. Ice to the area. This should progressively improved. If not follow-up with your doctor. All your test today were normal. No signs of a blood clot. No signs of this being related to your heart. Print Language: [place] Disposition Disposition: Home, Self Care
[2024-12-02 09:26] LABS: Hematocrit 35.3 % (37-47); Hemoglobin 11.7 g/dL (12.0-15.0); Immature Granulocytes Count 0.020 X10^3/uL (0.0-0.0); Mean Corp Hgb Conc 33.1 g/dL (32-36); Mean Corpuscular Volume 88.9 fL (81-99); Mean Platelet Vol. 11.4 fl (6.2-12.0); NRBC Flagged by Analyzer 0 % (0-5); Platelet Count 340 K/mm3 (150-450); RBC Distribution Width CV 13.7 % (11.6-14.6); RBC Distribution Width SD 44.7 fl (35.1-43.9); Red Blood Count 3.97 M/mm3 (4.2-5.4); White Blood Count 5.6 K/mm3 (4.4-11.0)
--- NOTE | 2024-12-02 09:28 | RAD_ITS ---
PROCEDURE: CHEST PA AND LATERAL 12/02/2024 REASON FOR EXAM: CHEST PAIN TECHNIQUE: Procedure Code: RADCXR Modality: DX Procedure: CHEST PA AND LATERAL COMPARISON: None FINDINGS: Hardware: EKG leads overlie the chest Heart: The heart size is normal. Mediastinum: The mediastinal contour is unremarkable. Lungs: The lungs are clear. Bones: The bones are unremarkable. RAD/Chest PA and Lateral IMPRESSION: No acute pulmonary process Reading Location: [place] [id number]
[2024-12-02 09:40] LABS: Troponin T High Sensitivity < 6 ng/L (<=14)
[2024-12-02 09:41] LABS: Anion Gap 10 (5-15); BUN 13 mg/dL (4-19); BUN/Creat Ratio 19.5 RATIO (10-20); Calcium,Total 9.0 mg/dL (7.6-11.0); Carbon Dioxide 22.1 mmol/L (21.0-32.0); Chloride 104 mmol/L (98-108); Estimated Creatinine Clearance 91.33 ml/min (50-250); Glucose 98 mg/dL (70-99); Potassium 3.8 mmol/L (3.3-5.1)
[2024-12-02 10:18] LABS: D-Dimer Quantitative (DVT/PE) < 0.27 FEU/ug/m (0.27-0.49)
[2024-12-02 10:50] VITALS: BP 124/66; BP 126/78; PULSE 78; RESP 16; TEMP 37.1; O2SAT 98; O2SAT 99
--- NOTE | 2024-12-02 12:21 | CM.ED ---
Social Work Reason for visit: No PCP Patient verified that she does not currently have a PCP as hers recently retired. [facility] provider list given. No further needs at this time. 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
== END 2024-12-02 10:51 | disposition home or self-care (01) ==
PROVIDERS: Emergency Provider Emergency Medicine; Visit Provider Emergency Medicine
DX: S29.011A Strain of muscle and tendon of front wall of thorax, initial encounter (principal); L50.9 Urticaria, unspecified; X58.XXXA Exposure to other specified factors, initial encounter
CPT/HCPCS: 71046; 80048; 84484; 85025; 85379; 93005; 99284; A4216